=== PATIENT | female | born 1965 | race Caucasian/White ===

== ENCOUNTER 2018-08-08 00:20 | Emergency (ER) | payer MEDICARE, OTHER, SELFPAY ==
[2018-08-08] VITALS (22 sets, daily range): BP systolic 88–138; BP diastolic 56–91; PULSE 77–93; RESP 7–21; TEMP 36.4; O2SAT 91–99; BMI 25.2
[2018-08-08] MEDS: ONDANSETRON 4 MG/2 ML INJ IV (00:36)
[2018-08-08] MEDS: NALOXONE 1 MG/ML SYRINGE IV (00:36)
[2018-08-08] MEDS: SODIUM CHLORIDE 0.9% 1,000 ML 1000 ML IV ×2 (00:39→03:00)
--- NOTE | 2018-08-08 01:00 | ED.OVERDOSE ---
HPI - Overdose <Herlinda Casarez, DO - Last Filed: 08/08/18 19:01> General Chief Complaint: Unresponsive Stated Complaint: accidental overdose Time Seen by Provider: 08/08/18 00:32 Source: patient, family and EMS Limitations: physical limitation History of Present Illness HPI Narrative: Patient is a 52-year-old female brought in by EMS for unresponsiveness. states he woke up with her head on his shoulder and she would not move at which point EMS was called. EMS almost intubated her in the field however she responded eventually to Narcan. She was given nasal Narcan and IV Narcan. Now moving all of her extremities but not really answering questions. The states it may be possible she drink a Gatorade bottle full of morphine and Ativan. His father just 2 days ago and was in hospice with brain cancer. They made Gatorade bottles with his 50 mg of morphine and 4 mg of Ativan. It was clearly labeled everyone knew that it was his. However it is not uncommon for her to have Gatorade she even was noted to have some Gatorade at dinner. is adamant that she has never been suicidal. 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 He states that she is on 130 mg of Percocet as day. Although oxycodone is listed, 15 mg for 6 hours. Intent: unknown Related Data Home Medications Medication Instructions Recorded Confirmed budesonide 3 mg PO TID 08/08/18 08/08/18 dicyclomine 10 mg PO Q4HR 08/08/18 08/08/18 diltiazem HCl 180 mg PO DAILY 08/08/18 08/08/18 diphenhydramine HCl 25 mg PO Q6H PRN 08/08/18 08/08/18 famotidine 40 mg PO BEDTIME PRN 08/08/18 08/08/18 hydrocortisone 15 mg PO DAILY 08/08/18 08/08/18 losartan 100 mg PO DAILY 08/08/18 08/08/18 omeprazole 40 mg PO BID 08/08/18 08/08/18 oxycodone 15 mg PO Q4-6H PRN 08/08/18 08/08/18 prazosin 2 mg PO BID PRN 08/08/18 08/08/18 promethazine 25 mg PO Q6HR 08/08/18 08/08/18 spironolactone 100 mg PO DAILY 08/08/18 08/08/18 Review of Systems <DO Sylvia Rasmussen Last Filed: 08/08/18 19:01> Review of Systems ROS Unobtainable: Unobtainable due to medical condition PFSH <Herlinda Casarez DO - Last Filed: 08/08/18 19:01> Medical History Eosinophilia (Acute) Social History (Updated 08/08/18 @ 04:54 by Herlinda Casarez DO) marital status: household members: spouse lives independently: Yes Exam <DO Sylvia Rasmussen Last Filed: 08/08/18 19:01> Initial Vital Signs Initial Vital Signs: Vital Signs Temperature 97.5 F L 08/08/18 00:29 Pulse Rate 89 08/08/18 00:29 Respiratory Rate 7 L 08/08/18 00:29 Blood Pressure 138/88 08/08/18 00:29 Pulse Oximetry 98 08/08/18 00:29 Gen.: Patient keeping eyes closed moving all extremities ad to take HEENT: Head is atraumatic pupils dilated minimally reactive Neck: Supple Lungs: Clear bilaterally no wheezes rales or rhonchi Cardiac: Regular rate Abdomen: Soft nontender Extremities: No gross bony deformities, peripheral pulses Neurologic: Unable to follow commands moving extremities. Not speaking comprehensively face symmetric <Amrit Laird DO - Last Filed: 08/08/18 15:12> Initial Vital Signs Initial Vital Signs: Vital Signs Temperature 97.5 F L 08/08/18 00:29 Pulse Rate 89 08/08/18 00:29 Respiratory Rate 7 L 08/08/18 00:29 Blood Pressure 138/88 08/08/18 00:29 Pulse Oximetry 98 08/08/18 00:29 Course <DO Sylvia Rasmussen Last Filed: 08/08/18 19:01> Orders Ordered: Discontinued Medications Sodium Chloride (Normal Saline 0.9%) 1,000 mls @ 1,000 mls/hr IV CONT CARYN Last Infusion: 08/08/18 02:57 Dose: 0 mls/hr Admin: 08/08/18 00:39 Dose: 1,000 mls/hr Sodium Chloride (Normal Saline 0.9%) 1,000 mls @ 1,000 mls/hr IV BOLUS ONE Stop: 08/08/18 03:56 Last Infusion: 08/08/18 04:11 Dose: 0 mls/hr Admin: 08/08/18 03:00 Dose: 1,000 mls/hr Sodium Chloride (Normal Saline 0.9%) 1,000 mls @ 150 mls/hr IV NOW ONE Stop: 08/08/18 10:49 Last Infusion: 08/08/18 11:33 Dose: 0 mls/hr Admin: 08/08/18 04:14 Dose: 150 mls/hr Naloxone HCl (Narcan) 1 mg IV NOW ONE Stop: 08/08/18 00:33 Last Admin: 08/08/18 00:36 Dose: 1 mg Naloxone HCl (Narcan) 0.4 mg IV NOW ONE Stop: 08/08/18 04:48 Last Admin: 08/08/18 05:14 Dose: 0.4 mg Ondansetron HCl (Zofran) 4 mg IV NOW ONE Stop: 08/08/18 00:33 Last Admin: 08/08/18 00:36 Dose: 4 mg Vital Signs - 8 hr 08/08/18 11:00 08/08/18 11:30 08/08/18 13:30 Pulse Rate 82 77 91 H Respiratory Rate 14 13 15 Blood Pressure [Right Arm] 122/66 116/70 98/58 L Pulse Oximetry 95 95 93 <Amrit Laird, DO - Last Filed: 08/08/18 15:12> Course Narrative: Patient signed out to me by Dr. Casarez. I have performed an independent history and physical exam and have no significant additions. Patient continues to be somnolent and is slowly moving in the right direction. She is guarding her airway without difficulty and arousable to gentle shaking. is at bedside and they still refuse admission despite discussion risks and benefits. Orders Ordered: Discontinued Medications Sodium Chloride (Normal Saline 0.9%) 1,000 mls @ 1,000 mls/hr IV CONT CARYN Last Infusion: 08/08/18 02:57 Dose: 0 mls/hr Admin: 08/08/18 00:39 Dose: 1,000 mls/hr Sodium Chloride (Normal Saline 0.9%) 1,000 mls @ 1,000 mls/hr IV BOLUS ONE Stop: 08/08/18 03:56 Last Infusion: 08/08/18 04:11 Dose: 0 mls/hr Admin: 08/08/18 03:00 Dose: 1,000 mls/hr Sodium Chloride (Normal Saline 0.9%) 1,000 mls @ 150 mls/hr IV NOW ONE Stop: 08/08/18 10:49 Last Infusion: 08/08/18 11:33 Dose: 0 mls/hr Admin: 08/08/18 04:14 Dose: 150 mls/hr Naloxone HCl (Narcan) 1 mg IV NOW ONE Stop: 08/08/18 00:33 Last Admin: 08/08/18 00:36 Dose: 1 mg Naloxone HCl (Narcan) 0.4 mg IV NOW ONE Stop: 08/08/18 04:48 Last Admin: 08/08/18 05:14 Dose: 0.4 mg Ondansetron HCl (Zofran) 4 mg IV NOW ONE Stop: 08/08/18 00:33 Last Admin: 08/08/18 00:36 Dose: 4 mg Reevaluation(s) Reevaluation #1: patient able to ambulate to the bathroom and speak with minimal slurring. She continues to improve and feels much better. She is of sound mind and judgment and has the capacity to make her own decisions. She denies any suicidal or homicidal intent Vital Signs - 8 hr 08/08/18 11:00 08/08/18 11:30 08/08/18 13:30 Pulse Rate 82 77 91 H Respiratory Rate 14 13 15 Blood Pressure [Right Arm] 122/66 116/70 98/58 L Pulse Oximetry 95 95 93 MDM - Overdose <Herlinda Casarez DO - Last Filed: 08/08/18 19:01> Lab Data Attestation: I reviewed the patient's lab results. Result diagrams: 08/08/18 00:55 08/08/18 00:55 Lab Results 08/08/18 08/08/18 08/08/18 Range/Units 00:55 00:55 00:55 WBC 9.0 (4.5-11.0) X10^3/uL RBC 5.20 (4.0-5.2) X10^6/uL Hgb 16.4 H (12.0-16.0) g/dL Hct 48.5 H (36-46) % MCV 93.3 (80-100) fL MCH 31.5 (26-34) PG MCHC 33.8 (30-36) % RDW 13.5 (11.6-14.8) % Plt Count 249 (150-400) X10^3/uL Neut % (Auto) 59.4 (50-75) % Lymph % (Auto) 22.9 L (25-40) % [place] % (Auto) 9.8 (3-14) % Eos % (Auto) 7.1 H (2-4) % Baso % (Auto) 0.8 (0-2) % Neut # (Auto) 5300 (1877-3073) /uL Lymph # (Auto) 2100 (6593-4495) /uL [place] # (Auto) 900 (0-900) /uL Eos # (Auto) 600 H (0-450) /uL Baso # (Auto) 100 (0-100) /uL Sodium 143 (137-145) mmol/L Potassium 4.5 (3.4-5.1) mmol/L Chloride 106 (98-107) mmol/L Carbon Dioxide 29 (22-32) mmol/L BUN 20 H (7-17) mg/dL Creatinine 0.80 (0.52-1.04) mg/dL Estimated GFR > 60.0 (>60) mL/min BUN/Creatinine Ratio 25.0 H (6-22) Glucose 93 (70-100) mg/dL Lactate 1.1 (0.7-2.1) mmol/L Calcium 9.2 (8.4-10.2) mg/dL Total Bilirubin 0.4 (0.2-1.3) mg/dL Conjugated Bilirubin 0.0 (0.0-0.3) md/dL Unconjugated Bilirubin 0.1 (0.0-1.1) mg/dL AST 22 (14-36) IU/L ALT 10 (9-52) IU/L Alkaline Phosphatase 87 (38-126) U/L Total Protein 7.2 (6.3-8.2) g/dL Albumin 4.1 (3.5-5.0) g/dL Globulin 3.1 (1.7-4.1) g/dL Albumin/Globulin Ratio 1.3 (1.0-2.8) Salicylates < 1.0 (<20) mg/dL Urine Opiates Screen (Negative) Ur Oxycodone Screen (Negative) Urine Methadone Screen (Negative) Acetaminophen < 10 L (10-30) ug/mL Ur Barbiturates Screen (Negative) U Tricyclic Antidepress (Negative) Ur Phencyclidine Scrn (Negative) Ur Amphetamines Screen (Negative) U Methamphetamines Scrn (Negative) Ur MDMA Scrn (Ecstasy) (Negative) U Benzodiazepines Scrn (Negative) Urine Cocaine Screen (Negative) U Marijuana (THC) Screen (Negative) Ethyl Alcohol < 10 mg/dL 08/08/18 Range/Units 03:13 WBC (4.5-11.0) X10^3/uL RBC (4.0-5.2) X10^6/uL Hgb (12.0-16.0) g/dL Hct (36-46) % MCV (80-100) fL MCH (26-34) PG MCHC (30-36) % RDW (11.6-14.8) % Plt Count (150-400) X10^3/uL Neut % (Auto) (50-75) % Lymph % (Auto) (25-40) % Rose[place] % (Auto) (3-14) % Eos % (Auto) (2-4) % Baso % (Auto) (0-2) % Neut # (Auto) (0320-6586) /uL Lymph # (Auto) (3164-2200) /uL Rose[place] # (Auto) (0-900) /uL Eos # (Auto) (0-450) /uL Baso # (Auto) (0-100) /uL Sodium (137-145) mmol/L Potassium (3.4-5.1) mmol/L Chloride (98-107) mmol/L Carbon Dioxide (22-32) mmol/L BUN (7-17) mg/dL Creatinine (0.52-1.04) mg/dL Estimated GFR (>60) mL/min BUN/Creatinine Ratio (6-22) Glucose (70-100) mg/dL Lactate (0.7-2.1) mmol/L Calcium (8.4-10.2) mg/dL Total Bilirubin (0.2-1.3) mg/dL Conjugated Bilirubin (0.0-0.3) md/dL Unconjugated Bilirubin (0.0-1.1) mg/dL AST (14-36) IU/L ALT (9-52) IU/L Alkaline Phosphatase (38-126) U/L Total Protein (6.3-8.2) g/dL Albumin (3.5-5.0) g/dL Globulin (1.7-4.1) g/dL Albumin/Globulin Ratio (1.0-2.8) Salicylates (<20) mg/dL Urine Opiates Screen Positive H (Negative) Ur Oxycodone Screen Positive H (Negative) Urine Methadone Screen Negative (Negative) Acetaminophen (10-30) ug/mL Ur Barbiturates Screen Negative (Negative) U Tricyclic Antidepress Negative (Negative) Ur Phencyclidine Scrn Negative (Negative) Ur Amphetamines Screen Negative (Negative) U Methamphetamines Scrn Negative (Negative) Ur MDMA Scrn (Ecstasy) Negative (Negative) U Benzodiazepines Scrn Positive H (Negative) Urine Cocaine Screen Negative (Negative) U Marijuana (THC) Screen Negative (Negative) Ethyl Alcohol mg/dL Imaging Data CT scan - head: Radiologist's impression: 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 6 mm herniation of cerebellar tonsillar so the Patience for a minute magnum. May be related cute 2 Chiari 1 malformation. Correlation with past medical history, comparison with prior studies and/or MRI follow-up suggested. No hydrocephalus. No intracranial hemorrhage or mass effect. Small metallic structures along medial preston of bilateral orbits may be postsurgical or foreign bodies. Coastal thickening. Nasal sinuses suggesting of bilateral uncinectomy. [facility] Narrative Medical decision making narrative: Patient immediately placed on CO2 monitor. A sometimes red 17 up to 30 but was staying around 25. She was given 1 mg of Ativan IV which seemed to improve her carbon monoxide into the upper 30s. She quickly became more agitated not following commands. She did calm down after some time CO2 remained in the 30s. 's dosing of medication seems slightly inaccurate although possible. Patient does take opiates daily he does have some tolerance. The patient remained on carbon monoxide detector which remained in the 30s she remained slightly arousable by touch. However blood pressure was slowly all be declining of but was quite variable depending on patient position and agitation. She was given is 0.4 mg more of Narcan she started moving more in responding more. Drug screen is positive for opiates and oxycodone and benzodiazepine period consistent with what was in the Gatorade bottle, and her home medication. The patient is slowly becoming more arousable blood pressure stabilizing. Will need to wait to wake up more for discharge. CT does show possible Chiari malformation. Unlikely to be causing symptoms at this time. Discussed with admission. However he would really prefer if patient could go home instead. 7:00 a.m. patient signed out to Dr. Laird, anticipate discharge back need to be more awake <Amrit Laird, DO - Last Filed: 08/08/18 15:12> Lab Data Lab Results 08/08/18 08/08/18 08/08/18 Range/Units 00:55 00:55 00:55 WBC 9.0 (4.5-11.0) X10^3/uL RBC 5.20 (4.0-5.2) X10^6/uL Hgb 16.4 H (12.0-16.0) g/dL Hct 48.5 H (36-46) % MCV 93.3 (80-100) fL MCH 31.5 (26-34) PG MCHC 33.8 (30-36) % RDW 13.5 (11.6-14.8) % Plt Count 249 (150-400) X10^3/uL Neut % (Auto) 59.4 (50-75) % Lymph % (Auto) 22.9 L (25-40) % Rose[place] % (Auto) 9.8 (3-14) % Eos % (Auto) 7.1 H (2-4) % Baso % (Auto) 0.8 (0-2) % Neut # (Auto) 5300 (2718-5403) /uL Lymph # (Auto) 2100 (8169-1036) /uL [place] # (Auto) 900 (0-900) /uL Eos # (Auto) 600 H (0-450) /uL Baso # (Auto) 100 (0-100) /uL Sodium 143 (137-145) mmol/L Potassium 4.5 (3.4-5.1) mmol/L Chloride 106 (98-107) mmol/L Carbon Dioxide 29 (22-32) mmol/L BUN 20 H (7-17) mg/dL Creatinine 0.80 (0.52-1.04) mg/dL Estimated GFR > 60.0 (>60) mL/min BUN/Creatinine Ratio 25.0 H (6-22) Glucose 93 (70-100) mg/dL Lactate 1.1 (0.7-2.1) mmol/L Calcium 9.2 (8.4-10.2) mg/dL Total Bilirubin 0.4 (0.2-1.3) mg/dL Conjugated Bilirubin 0.0 (0.0-0.3) md/dL Unconjugated Bilirubin 0.1 (0.0-1.1) mg/dL AST 22 (14-36) IU/L ALT 10 (9-52) IU/L Alkaline Phosphatase 87 (38-126) U/L Total Protein 7.2 (6.3-8.2) g/dL Albumin 4.1 (3.5-5.0) g/dL Globulin 3.1 (1.7-4.1) g/dL Albumin/Globulin Ratio 1.3 (1.0-2.8) Salicylates < 1.0 (<20) mg/dL Urine Opiates Screen (Negative) Ur Oxycodone Screen (Negative) Urine Methadone Screen (Negative) Acetaminophen < 10 L (10-30) ug/mL Ur Barbiturates Screen (Negative) U Tricyclic Antidepress (Negative) Ur Phencyclidine Scrn (Negative) Ur Amphetamines Screen (Negative) U Methamphetamines Scrn (Negative) Ur MDMA Scrn (Ecstasy) (Negative) U Benzodiazepines Scrn (Negative) Urine Cocaine Screen (Negative) U Marijuana (THC) Screen (Negative) Ethyl Alcohol < 10 mg/dL 08/08/18 Range/Units 03:13 WBC (4.5-11.0) X10^3/uL RBC (4.0-5.2) X10^6/uL Hgb (12.0-16.0) g/dL Hct (36-46) % MCV (80-100) fL MCH (26-34) PG MCHC (30-36) % RDW (11.6-14.8) % Plt Count (150-400) X10^3/uL Neut % (Auto) (50-75) % Lymph % (Auto) (25-40) % [place] % (Auto) (3-14) % Eos % (Auto) (2-4) % Baso % (Auto) (0-2) % Neut # (Auto) (9069-5290) /uL Lymph # (Auto) (2189-1799) /uL [place] # (Auto) (0-900) /uL Eos # (Auto) (0-450) /uL Baso # (Auto) (0-100) /uL Sodium (137-145) mmol/L Potassium (3.4-5.1) mmol/L Chloride (98-107) mmol/L Carbon Dioxide (22-32) mmol/L BUN (7-17) mg/dL Creatinine (0.52-1.04) mg/dL Estimated GFR (>60) mL/min BUN/Creatinine Ratio (6-22) Glucose (70-100) mg/dL Lactate (0.7-2.1) mmol/L Calcium (8.4-10.2) mg/dL Total Bilirubin (0.2-1.3) mg/dL Conjugated Bilirubin (0.0-0.3) md/dL Unconjugated Bilirubin (0.0-1.1) mg/dL AST (14-36) IU/L ALT (9-52) IU/L Alkaline Phosphatase (38-126) U/L Total Protein (6.3-8.2) g/dL Albumin (3.5-5.0) g/dL Globulin (1.7-4.1) g/dL Albumin/Globulin Ratio (1.0-2.8) Salicylates (<20) mg/dL Urine Opiates Screen Positive H (Negative) Ur Oxycodone Screen Positive H (Negative) Urine Methadone Screen Negative (Negative) Acetaminophen (10-30) ug/mL Ur Barbiturates Screen Negative (Negative) U Tricyclic Antidepress Negative (Negative) Ur Phencyclidine Scrn Negative (Negative) Ur Amphetamines Screen Negative (Negative) U Methamphetamines Scrn Negative (Negative) Ur MDMA Scrn (Ecstasy) Negative (Negative) U Benzodiazepines Scrn Positive H (Negative) Urine Cocaine Screen Negative (Negative) U Marijuana (THC) Screen Negative (Negative) Ethyl Alcohol mg/dL MDM Narrative Medical decision making narrative: 52-year-old female unresponsive patient presents after accidental ingestion a Gatorade bottle containing morphine and Ativan which had been stored in her refrigerator. She had no trauma and was around other people the entire. She has had no history of hurting herself or others. Patient had a very thorough evaluation lengthy stay in the department with each administration Narcan and she demonstrated improved clarity of thought and speech. Head CT and labs were unremarkable. Patient and her are insistent upon going home as he despite discussions of possible risks and benefit. Return precautions have been given and understood as evidenced by the ability of patient and to verbalize that back. Discharge Plan Departure Patient Disposition: Home Clinical Impression: Drug overdose Qualifiers: Encounter type: initial encounter Injury intent: accidental or unintentional Qualified Code(s): T50.901A - Poisoning by unspecified drugs, medicaments and biological substances, accidental (unintentional), initial encounter Discharge Date/Time: 08/08/18 15:03 Interventions: ED Discharge Assessment Last Done: 08/08/18 15:02 Instructions: DI for Drug Overdose in Adults Activity Restrictions/Additional Instructions: *You have been diagnosed with [ acute accidental polysubstance overdose] *What to do: *Take medications as directed *Follow up with your primary care provider in 2-3 days, call for an appointment. Let them know you were seen in the Emergency Department and that we ask that you be seen in follow up *Return to ER if you should have any new, worsening or concerning symptoms Prescriptions: No Action promethazine 25 mg Tablet 25 mg PO Q6HR RF: 0 budesonide 3 mg Capsule,Delayed,Extend.Release 3 mg PO TID RF: 0 diltiazem HCl 180 mg Capsule,Extended Release 24 Hr 180 mg PO DAILY RF: 0 famotidine 40 mg Tablet 40 mg PO BEDTIME PRN (Reason: Heartburn) RF: 0 spironolactone 100 mg Tablet 100 mg PO DAILY RF: 0 omeprazole 40 mg Capsule,Delayed Release(Dr/Ec) 40 mg PO BID RF: 0 diphenhydramine HCl 25 mg Tablet 25 mg PO Q6H PRN (Reason: Allergic Reaction) RF: 0 hydrocortisone 10 mg Tablet 15 mg PO DAILY RF: 0 losartan 100 mg Tablet 100 mg PO DAILY RF: 0 dicyclomine 10 mg Capsule 10 mg PO Q4HR RF: 0 prazosin 2 mg Capsule 2 mg PO BID PRN (Reason: Blood Pressure) RF: 0 oxycodone 15 mg Tablet, Oral Only 15 mg PO Q4-6H PRN (Reason: Pain, Severe) RF: 0
--- NOTE | 2018-08-08 01:04 | PC.NURSE ---
Pt combative, would not cooperate with blood draw. Pt required assist from her and 3 staff members to obtain blood.
[2018-08-08 01:10] LABS: Add Manual Diff / Slide Review NO; Basophils Absolute Auto 100 /uL (0-100); Basophils Percent Auto 0.8 % (0-2); Eosinophils Absolute Auto 600 /uL (0-450); Eosinophils Percent Auto 7.1 % (2-4); Hematocrit 48.5 % (36-46); Hemoglobin 16.4 g/dL (12.0-16.0); Lymphocytes Absolute Auto 2100 /uL (1100-4500); Lymphocytes Percent Auto 22.9 % (25-40); Mean Corpuscular HGB Conc 33.8 % (30-36); Mean Corpuscular Hemoglobin 31.5 PG (26-34); Mean Corpuscular Volume 93.3 fL (80-100); Monocytes Absolute Auto 900 /uL (0-900); Monocytes Percent Auto 9.8 % (3-14); Neutrophils Absolute Auto 5300 /uL (1500-7000); Neutrophils Percent Auto 59.4 % (50-75); Platelet Count 249 X10^3/uL (150-400); Red Cell Distribution Width 13.5 % (11.6-14.8)
[2018-08-08 01:15] LABS: Acetaminophen < 10 ug/mL (10-30); Alanine Aminotransferase 10 IU/L (9-52); Albumin 4.1 g/dL (3.5-5.0); Albumin Globulin Ratio 1.3 (1.0-2.8); Alkaline Phosphatase 87 U/L (38-126); Aspartate Aminotransferase 22 IU/L (14-36); Bilirubin Total 0.4 mg/dL (0.2-1.3); Bilirubin Unconjugated 0.1 mg/dL (0.0-1.1); Blood Urea Nitrogen 20 mg/dL (7-17); Calcium 9.2 mg/dL (8.4-10.2); Carbon Dioxide 29 mmol/L (22-32); Chloride 106 mmol/L (98-107); Estimated Glomerular Filt Rate > 60.0 mL/min (>60); Ethanol (ETOH) < 10 mg/dL; Globulin 3.1 g/dL (1.7-4.1); Glucose 93 mg/dL (70-100); HEMOLYSIS 44 (0-50); Lactate (Lactic Acid) 1.1 mmol/L (0.7-2.1); Potassium 4.5 mmol/L (3.4-5.1); Salicylate < 1.0 mg/dL (<20); Sodium 143 mmol/L (137-145); Total Protein 7.2 g/dL (6.3-8.2)
--- NOTE | 2018-08-08 02:27 | DI.CT.S_ITS ---
PROCEDURE: CT HEAD/BRAIN WO CON INDICATIONS: decreased responsivness TECHNIQUE: Noncontrast 4.5 mm thick angled axial sections acquired from the foramen magnum to the vertex, with coronal and sagittal reformats. For radiation dose reduction, the following was used: automated exposure control, adjustment of mA and/or kV according to patient size. COMPARISON: None. FINDINGS: Image quality: Excellent. CSF spaces: Basal cisterns are patent. No extra-axial fluid collections. Ventricles are normal in size and shape. Brain: No midline shift. No intracranial masses or hemorrhage. Phillips-white matter interface is normal. Cerebellar tonsil measures 5 mm below foramen magnum. Skull and face: Calvarium and visualized facial bones are intact, without suspicious lesions. Sinuses: Right maxillary sinus mucosal thickening. Mastoids are clear. IMPRESSION: 1. No acute intracranial abnormalities. 2. Low-lying cerebellar tonsil. 3. Right maxillary sinus mucosal thickening. No significant discrepancy with the slot shift supervisor radiology preliminary report. Dictated by: Maria Elena Kathleen M.D. on 08/08/2018 at 7:21 Approved by: Maria Elena Kathleen M.D. on 08/08/2018 at 7:23
[2018-08-08 03:22] LABS: Urine Amphetamines Negative (Negative); Urine Barbiturates Negative (Negative); Urine Benzodiazepines Positive (Negative); Urine Cocaine Negative (Negative); Urine MDMA Negative (Negative); Urine Methadone Negative (Negative); Urine Methamphetamines Negative (Negative); Urine Morphine/Opi cutoff 2000 Positive (Negative); Urine Oxycodone Positive (Negative); Urine Phencyclidine Negative (Negative); Urine Tetrahydrocannabinol Negative (Negative); Urine Tricyclic Antidepressant Negative (Negative)
[2018-08-08] MEDS: SODIUM CHLORIDE 0.9% 1,000 ML 150 ML IV (04:14)
--- NOTE | 2018-08-08 04:51 | ED_ITS ---
HPI - Overdose <Herlinda Casarez, DO - Last Filed: 08/08/18 19:01> General Chief Complaint: Unresponsive Stated Complaint: accidental overdose Time Seen by Provider: 08/08/18 00:32 Source: patient, family and EMS Limitations: physical limitation History of Present Illness HPI Narrative: Patient is a 52-year-old female brought in by EMS for unresponsiveness. states he woke up with her head on his shoulder and she would not move at which point EMS was called. EMS almost intubated her in the field however she responded eventually to Narcan. She was given nasal Narcan and IV Narcan. Now moving all of her extremities but not really answering questions. The states it may be possible she drink a Gatorade bottle full of morphine and Ativan. His father just 2 days ago and was in hospice with brain cancer. They made Gatorade bottles with his 50 mg of morphine and 4 mg of Ativan. It was clearly labeled everyone knew that it was his. However it is not uncommon for her to have Gatorade she even was noted to have some Gatorade at dinner. is adamant that she has never been suic idal. 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 He states that she is on 130 mg of Percocet as day. Although oxycodone is listed, 15 mg for 6 hours. Intent: unknown Related Data Home Medications Medication Instructions Recorded Confirmed budesonide 3 mg PO TID 08/08/18 08/08/18 dicyclomine 10 mg PO Q4HR 08/08/18 08/08/18 diltiazem HCl 180 mg PO DAILY 08/08/18 08/08/18 diphenhydramine HCl 25 mg PO Q6H PRN 08/08/18 08/08/18 famotidine 40 mg PO BEDTIME PRN 08/08/18 08/08/18 hydrocortisone 15 mg PO DAILY 08/08/18 08/08/18 losartan 100 mg PO DAILY 08/08/18 08/08/18 omeprazole 40 mg PO BID 08/08/18 08/08/18 oxycodone 15 mg PO Q4-6H PRN 08/08/18 08/08/18 prazosin 2 mg PO BID PRN 08/08/18 08/08/18 promethazine 25 mg PO Q6HR 08/08/18 08/08/18 spironolactone 100 mg PO DAILY 08/08/18 08/08/18 Review of Systems <DO Sylvia Rasmussen Last Filed: 08/08/18 19:01> Review of Systems ROS Unobtainable: Unobtainable due to medical condition PFSH <DO Sylvia Rasmussen Last Filed: 08/08/18 19:01> Medical History Eosinophilia (Acute) Social History (Updated 08/08/18 @ 04:54 by Herlinda Casarez DO) marital status: household members: spouse lives independently: Yes Exam <DO Sylvia Rasmussen Last Filed: 08/08/18 19:01> Initial Vital Signs Initial Vital Signs: Vital Signs Temperature 97.5 F L 08/08/18 00:29 Pulse Rate 89 08/08/18 00:29 Respiratory Rate 7 L 08/08/18 00:29 Blood Pressure 138/88 08/08/18 00:29 Pulse Oximetry 98 08/08/18 00:29 Gen.: Patient keeping eyes closed moving all extremities ad to take HEENT: Head is atraumatic pupils dilated minimally reactive Neck: Supple Lungs: Clear bilaterally no wheezes rales or rhonchi Cardiac: Regular rate Abdomen: Soft nontender Extremities: No gross bony deformities, peripheral pulses Neurologic: Unable to follow commands moving extremities. Not speaking comprehensively face symmetric <DO Sylvia Rodríguez Last Filed: 08/08/18 15:12> Initial Vital Signs Initial Vital Signs: Vital Signs Temperature 97.5 F L 08/08/18 00:29 Pulse Rate 89 08/08/18 00:29 Respiratory Rate 7 L 08/08/18 00:29 Blood Pressure 138/88 08/08/18 00:29 Pulse Oximetry 98 08/08/18 00:29 Course <DO Sylvia Rasmussen Last Filed: 08/08/18 19:01> Orders Ordered: Discontinued Medications Sodium Chloride (Normal Saline 0.9%) 1,000 mls @ 1,000 mls/hr IV CONT CARYN Last Infusion: 08/08/18 02:57 Dose: 0 mls/hr Admin: 08/08/18 00:39 Dose: 1,000 mls/hr Sodium Chloride (Normal Saline 0.9%) 1,000 mls @ 1,000 mls/hr IV BOLUS ONE Stop: 08/08/18 03:56 Last Infusion: 08/08/18 04:11 Dose: 0 mls/hr Admin: 08/08/18 03:00 Dose: 1,000 mls/hr Sodium Chloride (Normal Saline 0.9%) 1,000 mls @ 150 mls/hr IV NOW ONE Stop: 08/08/18 10:49 Last Infusion: 08/08/18 11:33 Dose: 0 mls/hr Admin: 08/08/18 04:14 Dose: 150 mls/hr Naloxone HCl (Narcan) 1 mg IV NOW ONE Stop: 08/08/18 00:33 Last Admin: 08/08/18 00:36 Dose: 1 mg Naloxone HCl (Narcan) 0.4 mg IV NOW ONE Stop: 08/08/18 04:48 Last Admin: 08/08/18 05:14 Dose: 0.4 mg Ondansetron HCl (Zofran) 4 mg IV NOW ONE Stop: 08/08/18 00:33 Last Admin: 08/08/18 00:36 Dose: 4 mg Vital Signs - 8 hr 08/08/18 11:00 08/08/18 11:30 08/08/18 13:30 Pulse Rate 82 77 91 H Respiratory Rate 14 13 15 Blood Pressure [Right Arm] 122/66 116/70 98/58 L Pulse Oximetry 95 95 93 <Amrit Laird, DO - Last Filed: 08/08/18 15:12> Course Narrative: Patient signed out to me by Dr. Casarez. I have performed an independent history and physical exam and have no significant additions. Patient continues to be somnolent and is slowly moving in the right direction. She is guarding her airway without difficulty and arousable to gentle shaking. is at bedside and they still refuse admission despite discussion risks and benefits. Orders Ordered: Discontinued Medications Sodium Chloride (Normal Saline 0.9%) 1,000 mls @ 1,000 mls/hr IV CONT CARYN Last Infusion: 08/08/18 02:57 Dose: 0 mls/hr Admin: 08/08/18 00:39 Dose: 1,000 mls/hr Sodium Chloride (Normal Saline 0.9%) 1,000 mls @ 1,000 mls/hr IV BOLUS ONE Stop: 08/08/18 03:56 Last Infusion: 08/08/18 04:11 Dose: 0 mls/hr Admin: 08/08/18 03:00 Dose: 1,000 mls/hr Sodium Chloride (Normal Saline 0.9%) 1,000 mls @ 150 mls/hr IV NOW ONE Stop: 08/08/18 10:49 Last Infusion: 08/08/18 11:33 Dose: 0 mls/hr Admin: 08/08/18 04:14 Dose: 150 mls/hr Naloxone HCl (Narcan) 1 mg IV NOW ONE Stop: 08/08/18 00:33 Last Admin: 08/08/18 00:36 Dose: 1 mg Naloxone HCl (Narcan) 0.4 mg IV NOW ONE Stop: 08/08/18 04:48 Last Admin: 08/08/18 05:14 Dose: 0.4 mg Ondansetron HCl (Zofran) 4 mg IV NOW ONE Stop: 08/08/18 00:33 Last Admin: 08/08/18 00:36 Dose: 4 mg Reevaluation(s) Reevaluation #1: patient able to ambulate to the bathroom and speak with minimal slurring. She continues to improve and feels much better. She is of sound mind and judgment and has the capacity to make her own decisions. She denies any suicidal or homicidal intent Vital Signs - 8 hr 08/08/18 11:00 08/08/18 11:30 08/08/18 13:30 Pulse Rate 82 77 91 H Respiratory Rate 14 13 15 Blood Pressure [Right Arm] 122/66 116/70 98/58 L Pulse Oximetry 95 95 93 MDM - Overdose <Herlinda Casarez DO - Last Filed: 08/08/18 19:01> Lab Data Attestation: I reviewed the patient's lab results. Result diagrams: 08/08/18 00:55 08/08/18 00:55 Lab Results 08/08/18 08/08/18 08/08/18 Range/Units 00:55 00:55 00:55 WBC 9.0 (4.5-11.0) X10^3/uL RBC 5.20 (4.0-5.2) X10^6/uL Hgb 16.4 H (12.0-16.0) g/dL Hct 48.5 H (36-46) % MCV 93.3 (80-100) fL MCH 31.5 (26-34) PG MCHC 33.8 (30-36) % RDW 13.5 (11.6-14.8) % Plt Count 249 (150-400) X10^3/uL Neut % (Auto) 59.4 (50-75) % Lymph % (Auto) 22.9 L (25-40) % [place] % (Auto) 9.8 (3-14) % Eos % (Auto) 7.1 H (2-4) % Baso % (Auto) 0.8 (0-2) % Neut # (Auto) 5300 (9154-3506) /uL Lymph # (Auto) 2100 (8247-5514) /uL [place] # (Auto) 900 (0-900) /uL Eos # (Auto) 600 H (0-450) /uL Baso # (Auto) 100 (0-100) /uL Sodium 143 (137-145) mmol/L Potassium 4.5 (3.4-5.1) mmol/L Chloride 106 (98-107) mmol/L Carbon Dioxide 29 (22-32) mmol/L BUN 20 H (7-17) mg/dL Creatinine 0.80 (0.52-1.04) mg/dL Estimated GFR > 60.0 (>60) mL/min BUN/Creatinine Ratio 25.0 H (6-22) Glucose 93 (70-100) mg/dL Lactate 1.1 (0.7-2.1) mmol/L Calcium 9.2 (8.4-10.2) mg/dL Total Bilirubin 0.4 (0.2-1.3) mg/dL Conjugated Bilirubin 0.0 (0.0-0.3) md/dL Unconjugated Bilirubin 0.1 (0.0-1.1) mg/dL AST 22 (14-36) IU/L ALT 10 (9-52) IU/L Alkaline Phosphatase 87 (38-126) U/L Total Protein 7.2 (6.3-8.2) g/dL Albumin 4.1 (3.5-5.0) g/dL Globulin 3.1 (1.7-4.1) g/dL Albumin/Globulin Ratio 1.3 (1.0-2.8) Salicylates < 1.0 (<20) mg/dL Urine Opiates Screen (Negative) Ur Oxycodone Screen (Negative) Urine Methadone Screen (Negative) Acetaminophen < 10 L (10-30) ug/mL Ur Barbiturates Screen (Negative) U Tricyclic Antidepress (Negative) Ur Phencyclidine Scrn (Negative) Ur Amphetamines Screen (Negative) U Methamphetamines Scrn (Negative) Ur MDMA Scrn (Ecstasy) (Negative) U Benzodiazepines Scrn (Negative) Urine Cocaine Screen (Negative) U Marijuana (THC) Screen (Negative) Ethyl Alcohol < 10 mg/dL 08/08/18 Range/Units 03:13 WBC (4.5-11.0) X10^3/uL RBC (4.0-5.2) X10^6/uL Hgb (12.0-16.0) g/dL Hct (36-46) % MCV (80-100) fL MCH (26-34) PG MCHC (30-36) % RDW (11.6-14.8) % Plt Count (150-400) X10^3/uL Neut % (Auto) (50-75) % Lymph % (Auto) (25-40) % [place] % (Auto) (3-14) % Eos % (Auto) (2-4) % Baso % (Auto) (0-2) % Neut # (Auto) (6020-3699) /uL Lymph # (Auto) (8456-8617) /uL Comal # (Auto) (0-900) /uL Eos # (Auto) (0-450) /uL Baso # (Auto) (0-100) /uL Sodium (137-145) mmol/L Potassium (3.4-5.1) mmol/L Chloride (98-107) mmol/L Carbon Dioxide (22-32) mmol/L BUN (7-17) mg/dL Creatinine (0.52-1.04) mg/dL Estimated GFR (>60) mL/min BUN/Creatinine Ratio (6-22) Glucose (70-100) mg/dL Lactate (0.7-2.1) mmol/L Calcium (8.4-10.2) mg/dL Total Bilirubin (0.2-1.3) mg/dL Conjugated Bilirubin (0.0-0.3) md/dL Unconjugated Bilirubin (0.0-1.1) mg/dL AST (14-36) IU/L ALT (9-52) IU/L Alkaline Phosphatase (38-126) U/L Total Protein (6.3-8.2) g/dL Albumin (3.5-5.0) g/dL Globulin (1.7-4.1) g/dL Albumin/Globulin Ratio (1.0-2.8) Salicylates (<20) mg/dL Urine Opiates Screen Positive H (Negative) Ur Oxycodone Screen Positive H (Negative) Urine Methadone Screen Negative (Negative) Acetaminophen (10-30) ug/mL Ur Barbiturates Screen Negative (Negative) U Tricyclic Antidepress Negative (Negative) Ur Phencyclidine Scrn Negative (Negative) Ur Amphetamines Screen Negative (Negative) U Methamphetamines Scrn Negative (Negative) Ur MDMA Scrn (Ecstasy) Negative (Negative) U Benzodiazepines Scrn Positive H (Negative) Urine Cocaine Screen Negative (Negative) U Marijuana (THC) Screen Negative (Negative) Ethyl Alcohol mg/dL Imaging Data CT scan - head: Radiologist's impression: 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 6 mm herniation of cerebellar tonsillar so the Patience for a minute magnum. May be related cute 2 Chiari 1 malformation. Correlation with past medical history, comparison with prior studies and/or MRI follow-up suggested. No hydrocephalus. No intracranial hemorrhage or mass effect. Small metallic structures along medial preston of bilateral orbits may be postsurgical or foreign bodies. Coastal thickening. Nasal sinuses suggesting of bilateral uncinectomy. MDM Narrative Medical decision making narrative: Patient immediately placed on CO2 monitor. A sometimes red 17 up to 30 but was staying around 25. She was given 1 mg of Ativan IV which seemed to improve her carbon monoxide into the upper 30s. She quickly became more agitated not following commands. She did calm down after some time CO2 remained in the 30s. 's dosing of medication seems slightly inaccurate although possible. Patient does take opiates daily he does have some tolerance. The patient remained on carbon monoxide detector which remained in the 30s she remained slightly arousable by touch. However blood pressure was slowly all be declining of but was quite variable depending on patient position and agitation. She was given is 0.4 mg more of Narcan she started moving more in responding more. Drug screen is positive for opiates and oxycodone and benzodiazepine period consistent with what was in the Gatorade bottle, and her home medication. The patient is slowly becoming more arousable blood pressure stabilizing. Will need to wait to wake up more for discharge. CT does show possible Chiari malformation. Unlikely to be causing symptoms at this time. Discussed with admission. However he would really prefer if patient could go home instead. 7:00 a.m. patient signed out to Dr. Laird, anticipate discharge back need to be more awake <Amrit Laird, - Last Filed: 08/08/18 15:12> Lab Data Lab Results 08/08/18 08/08/18 08/08/18 Range/Units 00:55 00:55 00:55 WBC 9.0 (4.5-11.0) X10^3/uL RBC 5.20 (4.0-5.2) X10^6/uL Hgb 16.4 H (12.0-16.0) g/dL Hct 48.5 H (36-46) % MCV 93.3 (80-100) fL MCH 31.5 (26-34) PG MCHC 33.8 (30-36) % RDW 13.5 (11.6-14.8) % Plt Count 249 (150-400) X10^3/uL Neut % (Auto) 59.4 (50-75) % Lymph % (Auto) 22.9 L (25-40) % Com[place] % (Auto) 9.8 (3-14) % Eos % (Auto) 7.1 H (2-4) % Baso % (Auto) 0.8 (0-2) % Neut # (Auto) 5300 (3275-7345) /uL Lymph # (Auto) 2100 (5125-6440) /uL [place] # (Auto) 900 (0-900) /uL Eos # (Auto) 600 H (0-450) /uL Baso # (Auto) 100 (0-100) /uL Sodium 143 (137-145) mmol/L Potassium 4.5 (3.4-5.1) mmol/L Chloride 106 (98-107) mmol/L Carbon Dioxide 29 (22-32) mmol/L BUN 20 H (7-17) mg/dL Creatinine 0.80 (0.52-1.04) mg/dL Estimated GFR > 60.0 (>60) mL/min BUN/Creatinine Ratio 25.0 H (6-22) Glucose 93 (70-100) mg/dL Lactate 1.1 (0.7-2.1) mmol/L Calcium 9.2 (8.4-10.2) mg/dL Total Bilirubin 0.4 (0.2-1.3) mg/dL Conjugated Bilirubin 0.0 (0.0-0.3) md/dL Unconjugated Bilirubin 0.1 (0.0-1.1) mg/dL AST 22 (14-36) IU/L ALT 10 (9-52) IU/L Alkaline Phosphatase 87 (38-126) U/L Total Protein 7.2 (6.3-8.2) g/dL Albumin 4.1 (3.5-5.0) g/dL Globulin 3.1 (1.7-4.1) g/dL Albumin/Globulin Ratio 1.3 (1.0-2.8) Salicylates < 1.0 (<20) mg/dL Urine Opiates Screen (Negative) Ur Oxycodone Screen (Negative) Urine Methadone Screen (Negative) Acetaminophen < 10 L (10-30) ug/mL Ur Barbiturates Screen (Negative) U Tricyclic Antidepress (Negative) Ur Phencyclidine Scrn (Negative) Ur Amphetamines Screen (Negative) U Methamphetamines Scrn (Negative) Ur MDMA Scrn (Ecstasy) (Negative) U Benzodiazepines Scrn (Negative) Urine Cocaine Screen (Negative) U Marijuana (THC) Screen (Negative) Ethyl Alcohol < 10 mg/dL 08/08/18 Range/Units 03:13 WBC (4.5-11.0) X10^3/uL RBC (4.0-5.2) X10^6/uL Hgb (12.0-16.0) g/dL Hct (36-46) % MCV (80-100) fL MCH (26-34) PG MCHC (30-36) % RDW (11.6-14.8) % Plt Count (150-400) X10^3/uL Neut % (Auto) (50-75) % Lymph % (Auto) (25-40) % [place] % (Auto) (3-14) % Eos % (Auto) (2-4) % Baso % (Auto) (0-2) % Neut # (Auto) (3901-3591) /uL Lymph # (Auto) (9437-0397) /uL [place] # (Auto) (0-900) /uL Eos # (Auto) (0-450) /uL Baso # (Auto) (0-100) /uL Sodium (137-145) mmol/L Potassium (3.4-5.1) mmol/L Chloride (98-107) mmol/L Carbon Dioxide (22-32) mmol/L BUN (7-17) mg/dL Creatinine (0.52-1.04) mg/dL Estimated GFR (>60) mL/min BUN/Creatinine Ratio (6-22) Glucose (70-100) mg/dL Lactate (0.7-2.1) mmol/L Calcium (8.4-10.2) mg/dL Total Bilirubin (0.2-1.3) mg/dL Conjugated Bilirubin (0.0-0.3) md/dL Unconjugated Bilirubin (0.0-1.1) mg/dL AST (14-36) IU/L ALT (9-52) IU/L Alkaline Phosphatase (38-126) U/L Total Protein (6.3-8.2) g/dL Albumin (3.5-5.0) g/dL Globulin (1.7-4.1) g/dL Albumin/Globulin Ratio (1.0-2.8) Salicylates (<20) mg/dL Urine Opiates Screen Positive H (Negative) Ur Oxycodone Screen Positive H (Negative) Urine Methadone Screen Negative (Negative) Acetaminophen (10-30) ug/mL Ur Barbiturates Screen Negative (Negative) U Tricyclic Antidepress Negative (Negative) Ur Phencyclidine Scrn Negative (Negative) Ur Amphetamines Screen Negative (Negative) U Methamphetamines Scrn Negative (Negative) Ur MDMA Scrn (Ecstasy) Negative (Negative) U Benzodiazepines Scrn Positive H (Negative) Urine Cocaine Screen Negative (Negative) U Marijuana (THC) Screen Negative (Negative) Ethyl Alcohol mg/dL MDM Narrative Medical decision making narrative: 52-year-old female unresponsive patient presents after accidental ingestion a Gatorade bottle containing morphine and Ativan which had been stored in her refrigerator. She had no trauma and was around other people the entire. She has had no history of hurting herself or others. Patient had a very thorough evaluation lengthy stay in the department with each administration Narcan and she demonstrated improved clarity of thought and speech. Head CT and labs were unremarkable. Patient and her are insistent upon going home as he despite discussions of possible risks and benefit. Return precautions have been given and understood as evidenced by the ability of patient and to verbalize that back. Discharge Plan Departure Patient Disposition: Home Clinical Impression: Drug overdose Qualifiers: Encounter type: initial encounter Injury intent: accidental or unintentional Qualified Code(s): T50.901A - Poisoning by unspecified drugs, medicaments and biological substances, accidental (unintentional), initial encounter Discharge Date/Time: 08/08/18 15:03 Interventions: ED Discharge Assessment Last Done: 08/08/18 15:02 Instructions: DI for Drug Overdose in Adults Activity Restrictions/Additional Instructions: *You have been diagnosed with [ acute accidental polysubstance overdose] *What to do: *Take medications as directed *Follow up with your primary care provider in 2-3 days, call for an appointment. Let them know you were seen in the Emergency Department and that we ask that you be seen in follow up *Return to ER if you should have any new, worsening or concerning symptoms Prescriptions: No Action promethazine 25 mg Tablet 25 mg PO Q6HR RF: 0 budesonide 3 mg Capsule,Delayed,Extend.Release 3 mg PO TID RF: 0 diltiazem HCl 180 mg Capsule,Extended Release 24 Hr 180 mg PO DAILY RF: 0 famotidine 40 mg Tablet 40 mg PO BEDTIME PRN (Reason: Heartburn) RF: 0 spironolactone 100 mg Tablet 100 mg PO DAILY RF: 0 omeprazole 40 mg Capsule,Delayed Release(Dr/Ec) 40 mg PO BID RF: 0 diphenhydramine HCl 25 mg Tablet 25 mg PO Q6H PRN (Reason: Allergic Reaction) RF: 0 hydrocortisone 10 mg Tablet 15 mg PO DAILY RF: 0 losartan 100 mg Tablet 100 mg PO DAILY RF: 0 dicyclomine 10 mg Capsule 10 mg PO Q4HR RF: 0 prazosin 2 mg Capsule 2 mg PO BID PRN (Reason: Blood Pressure) RF: 0 oxycodone 15 mg Tablet, Oral Only 15 mg PO Q4-6H PRN (Reason: Pain, Severe) RF: 0
[2018-08-08] MEDS: NALOXONE 0.4 MG/ML VIAL IV (05:14)
--- NOTE | 2018-08-08 09:42 | PC.NURSE ---
pt arouable to voice. pt barely opens eyes, pt quickly closes eyes, and only makes sounds pt not answering questions. will continue to monitor patient.
--- NOTE | 2018-08-08 15:12 | PC.NURSE ---
while discharging pt. pt fell dozed off. raised voice at pt and states oz! pt states i didnt know if you were talking to me states youll know if im talking to you, and if im not you listen to me. and states sign this right here. then explained to pt may continue to have episodes of dozing off intermittently, this may last for the rest of day. verbally agreed. nursing staff in parking lot witnessed pt's yelling at patient and shaking pt's coban with guaze in her face. yelling was heard across the parking lot. concerned for pt's safety so reported information to staff.
== END 2018-08-08 15:03 | disposition home or self-care (01) ==
PROVIDERS: Emergency Medicine; Emergency Provider Emergency Medicine
DX: T50.901A Poisoning by unspecified drugs, medicaments and biological substances, accidental (unintentional), initial encounter (principal); R46.4 Slowness and poor responsiveness
CPT/HCPCS: 36415; 70450; 80053; 80076; 80305; 80320; 80329; 83605; 85025; 93041; 96361; 96374; 96375; 96376; 99285; 99291; 99292; G0480; J2310; J2405